=== PATIENT | female | born 1980 | race Hispanic/Latino ===

== ENCOUNTER 2024-05-04 15:44 | Emergency (ER) | payer BC, SELFPAY ==
[2024-05-04 16:04] VITALS: BP 138/98
[2024-05-04 16:27] LABS: % Basophils 0.7 % (0-2); % Eosinophils 6.2 % (0-6); % Immature Granulocytes 0.4 % (0-0.5); % Lymphocytes 32.6 % (20.5-51.1); % Monocytes 6.2 % (1.7-9.3); % Neutrophils 53.9 % (42.2-75.2); Absolute Basophils 0.1 10^3/uL (0-0.2); Absolute Eosinophils 0.7 10^3/uL (0-0.7); Absolute Lymphocytes 3.5 10^3/uL (1.2-3.4); Absolute Monocytes 0.7 10^3/uL (0.1-0.6); Absolute Neutrophils 5.8 10^3/uL (1.4-6.5); Hematocrit 40.4 % (37.0-47.0); Hemoglobin 13.6 g/dL (12.0-16.0); Mean Corp Hgb Conc. 33.7 g/dL (33.0-37.0); Mean Corpuscular Hgb 26.7 pg (27.0-31.0); Mean Corpuscular Volume 79.2 fL (81.0-99.0); Nucleated Red Blood Cells % 0 %; Platelet Count 415 10^3/uL (130-400); Red Cell Dist. Width 15.9 % (11.5-14.5); White Blood Cell Count 10.8 10^3/uL (4.8-10.8)
[2024-05-04 16:36] LABS: HCG, Serum Qualitative Screen Negative
[2024-05-04 16:39] LABS: ALT (SGPT) 35 U/L (0-35); AST (SGOT) 27 U/L (14-36); Albumin 4.6 g/dl (3.5-5.0); Alkaline Phosphatase 159 U/L (38-126); Blood Urea Nitrogen 14 mg/dl (7-17); Carbon Dioxide 25 mmol/L (22-30); Chloride 104 mmol/L (98-107); Glucose 110 mg/dl (70-99); Sodium 144 mmol/L (135-145); Total Bilirubin 0.2 mg/dl (0.2-1.3); Total Protein 7.7 g/dl (6.3-8.2); eGFR > 60.00
[2024-05-04 16:51] LABS: Troponin I < 0.012 ng/ml
[2024-05-04 18:38] VITALS: BP 138/90
[2024-05-04 18:43] VITALS: BMI 33.3
[2024-05-04 20:15] VITALS: BP 124/91
[2024-05-04 21:04] LABS: Troponin I < 0.012 ng/ml
--- NOTE | 2024-05-04 21:14 | ED.GENMED ---
History of Present Illness
General
Chief Complaint: Breathing Problem
Source: patient
Exam Limitations: none
Time Seen by Provider: 05/04/24 18:52
History of Present Illness
History of Present Illness:
43-year-old female presents with onset of chest discomfort earlier today. The pain is sharp stabbing in nature it is made worse with breathing and is associated with shortness of breath. She denies leg swelling or calf pain. No recent travel or
surgery. No fever or cough. No nausea or vomiting. No other complaints at this time
Phy Exam
Physical Exam
Physical Exam:
General: Well-appearing female no acute respiratory distress
HEENT: Normocephalic atraumatic
Heart: Regular rate and rhythm no murmurs
Lungs: Clear no wheeze
Vascular: 2+ radial pulses bilateral wrist
Skin is warm no rash
Course
Orders/Labs/Results
Orders:
Orders
05/04/24 15:46
Electrocardiogram (*1) Urgent
Reason for Study: Shortness of Breath
05/04/24 15:47
EKG- Treatment ONCE
05/04/24 16:03
Test Result ONCE
05/04/24 16:17
Complete Blood Count/With Diff Urgent
Comprehensive Metabolic Panel Urgent
HCG, Serum Qualitative Screen Urgent
Comment: Notify provider if positive test present
Troponin I Urgent
05/04/24 19:01
CT Chest Pe Study Urgent
Comment:
Reason For Exam: chest pain
05/04/24 20:23
Troponin I Urgent
05/04/24 22:30
D-Dimer Urgent
Abnormal Lab Results
05/04/24
16:17
MCV 79.2 L fL
(81.0-99.0)
MCH 26.7 L pg
(27.0-31.0)
RDW 15.9 H %
(11.5-14.5)
Plt Count 415 H 10^3/uL
(130-400)
MPV 11.0 H fL
(7.4-10.4)
Absolute Lymphs (auto) 3.5 H 10^3/uL
(1.2-3.4)
Absolute Monos (auto) 0.7 H 10^3/uL
(0.1-0.6)
Eosinophils % 6.2 H %
(0-6)
Glucose 110 H mg/dl
(70-99)
Alkaline Phosphatase 159 H U/L
(38-126)
05/04/24 16:17
05/04/24 16:17
Vital Signs
Initial and Last Documented VS:
Initial Vital Signs
Temp Pulse Resp BP Pulse Ox
98.2 F 101 20 138/98 98
05/04/24 16:04 05/04/24 16:04 05/04/24 16:04 05/04/24 16:04 05/04/24 16:04
Last Documented Vital Signs
Temp Pulse Resp BP Pulse Ox
98.8 F 92 16 113/82 97
05/04/24 20:15 05/04/24 23:00 05/04/24 22:00 05/04/24 23:00 05/04/24 23:00
MDM/Problems Addressed
Differential Diagnosis Includes:
Chest pain pleuritic in nature with associated shortness of breath. Initially she was tachycardic on arrival. Consider PE versus dissection versus ACS versus musculoskeletal chest pain
Given tachycardia, will order PE study. EKG was reviewed. Labs pending. Initial troponin undetectable. Will repeat troponin given onset of discomfort
*Critical Care Note
Total Time (30-74mins, 75-104mins- exclusive of procedures): Not Applicable
Update Note
Update Note:
Chest CT PE protocol shows poor opacification of the segmental and subsegmental arteries possibly due to motion artifact however they cannot exclude PE. There is no evidence of dissection. D-dimer was then ordered given her symptoms and
tachycardia. D-dimer was within normal limits. Pain is improved after Toradol for her discomfort. Patient notes left sided discomfort. Question possible musculoskeletal in nature. No evidence of ACS with troponin x 2 being negative.
ED Attending Note
-
Portions of this chart may have been created with voice recognition software.� Occasional wrong word or��sound alike� substitutions may have occurred due to the inherent limitations of voice recognition software.
Discharge Plan
Departure
Patient Disposition: Home (Routine Discharge)
Date of Disposition: 05/05/24
Time of Disposition: 00:06
Patient with high blood pressure during this ER visit?: No
Discharge Problem:
Chest pain
Instructions: Chest Pain (DC)
Prescriptions:
No Action
amlodipine
0.5 tab PO DAILY
Patient Comments:
pt does not know mg of tablet
Referrals:
Lucy Landa, [Family Provider] -
Activity Restrictions/Additional Instructions:
Please use Tylenol if needed for pain. Return for worsening symptoms otherwise follow-up with your doctor
Interventions
Interventions:
*Risk Screen - Suicide Last Done: 05/04/24 16:04
*General Assessment Last Done: 05/04/24 18:47
*Neglect/Abuse Screening Last Done: 05/04/24 18:48
ED- Fall Risk Assessment Last Done: 05/04/24 18:45
*ED COVID-19 Vaccine History Last Done: 05/04/24 18:40
ED- Cardiac Assessment Last Done: 05/04/24 20:20
ED- Pulmonary Assessment Last Done: 05/04/24 20:20
Discharge Date and Time
Print Language: MOLDOVAN
[2024-05-04 21:45] VITALS: BP 123/73
[2024-05-04 22:00] VITALS: BP 128/85
[2024-05-04 22:46] LABS: D-Dimer 0.42 ug/mlFEU (0.00-0.50)
[2024-05-04 23:00] VITALS: BP 113/82
[2024-05-05] VITALS: BP 108/79
== END 2024-05-05 00:19 | disposition home or self-care (01) ==
LOC: EMR 15:44
PROVIDERS: Emergency Medicine; Physician Assistant; EMERGENCY PHYSICIAN Student in an Organized Health Care Education/Training Program; FAMILY PHYSICIAN Family Medicine
DX: R07.89 Other chest pain (principal); R06.02 Shortness of breath; R00.0 Tachycardia, unspecified
CPT/HCPCS: 99285; 71275; 80053; 84484; 84703; 85025; 85379; 93005; Q9967